=== PATIENT | male | born 1995 ===

== ENCOUNTER 2020-12-17 12:03 | Emergency (ER) | payer MEDICAID ==
[~2020-12-17] VITALS: Ht 175.3 cm; Wt 86.4 kg
[2020-12-17 12:13] VITALS: BP 164/99
--- NOTE | 2020-12-17 13:17 | NUR ---
Patient denies any complaints of pain.
== END 2020-12-17 13:31 ==
LOC: ER 12:04
DX: Z02.89 Encounter for other administrative examinations (principal); M25.511 Pain in right shoulder
CPT/HCPCS: 99283